=== PATIENT | female | born 1985 | race Caucasian/White ===

== ENCOUNTER 2017-06-02 10:58 | Emergency (ER) | payer OTHER ==
[~2017-06-02] VITALS: Ht 167.6 cm; Wt 95.3 kg
--- NOTE | 2017-06-02 11:31 | PHYS DOC ---
Past History Past Medical History: Asthma Past Surgical History: Tubal ligation Smoking: Cigarettes Alcohol Use: Occasionally Drug Use: None Adult General Chief Complaint Chief Complaint: BACK INJURY HPI HPI 31-year-old female patient complaining of bilateral low back pain after she slipped on ice 8 days ago. Patient states the pain is sharp and constant and getting worse with movement. Patient states left-sided pain improved but the right-sided pain is not getting better and rated her pain 7/10. Patient states she made an appointment [facility] but because of problem with insurance decided to come to ER. Patient denies , focal neuro deficit, fever and chills, urinary and bowel incontinence, history of back pain. Review of Systems Review of Systems Constitutional: Denies fever or chills [] Eyes: Denies change in visual acuity, redness, or eye pain [] HENT: Denies nasal congestion or sore throat [] Respiratory: Denies cough or shortness of breath [] Cardiovascular: No additional information not addressed in HPI [] GI: Denies abdominal pain, nausea, vomiting, bloody stools or diarrhea [] : Denies dysuria or hematuria [] Musculoskeletal: Reports back pain Integument: Denies rash or skin lesions [] Neurologic: Denies headache, focal weakness or sensory changes [] Endocrine: Denies polyuria or polydipsia [] All other systems were reviewed and found to be within normal limits, except as documented in this note. Allergies Allergies Allergies Coded Allergies Type Severity Reaction Last Updated Verified No Known Drug Allergies 06/02/17 No Physical Exam Physical Exam Constitutional: Well developed, well nourished, moderate distress, non-toxic appearance. [] HENT: Normocephalic, atraumatic, bilateral external ears normal, oropharynx moist, no oral exudates, nose normal. [] Eyes: PERRLA, EOMI, conjunctiva normal, no discharge. [] Neck: Normal range of motion, no tenderness, supple, no stridor. [] Cardiovascular:Heart rate regular rhythm, no murmur [] Lungs & Thorax: Bilateral breath sounds clear to auscultation [] Abdomen: Bowel sounds normal, soft, no tenderness, no masses, no pulsatile masses. [] Skin: Warm, dry, no erythema, no rash. [] Back: No deformity or midline tenderness, limited range of motion because of the pain, right paraspinal Extremities: No tenderness, no cyanosis, no clubbing, ROM intact, no edema. [] Neurologic: Alert and oriented X 3, normal motor function, normal sensory function, no focal deficits noted. [] Psychologic: Anxious, judgement normal, mood normal. [] Current Patient Data Vital Signs Vital Signs Date Time Temp Pulse Resp B/P (MAP) Pulse Ox O2 Delivery O2 Flow Rate FiO2 06/02/17 10:58 98.3 88 18 97 Room Air EKG EKG [] Radiology/Procedures Radiology/Procedures [] [place] [id number] IMAGING REPORT Signed PATIENT: EASTON WHITEHEAD ACCOUNT: [id number] : 1985 LOCATION: ER AGE: 31 SEX: F EXAM STATUS: REG ER ORD. PHYSICIAN: LEE CHAU MD REASON: fall, back pain PROCEDURE: LUMBAR SPINE 2-3V Lumbar spine, 3 views, 06/02/2017: History: Low back pain, injury The lumbar vertebral heights are well-maintained. The intervertebral disc spaces are well preserved. There are several shallow Schmorl's nodes. No fracture or dislocation is identified. The paraspinous soft tissues are unremarkable. IMPRESSION: No acute lumbar spine abnormality is detected. DICTATED AND SIGNED BY: ANDREI NOVAK MD DATE: 06/02/17 1142 CC: LEE CHAU MD; PCP,NO ~ Course & Med Decision Making Course & Med Decision Making Pertinent Labs and Imaging studies reviewed. (See chart for details) Evaluation of patient in ER showed 31-year-old female patient with him injury to her back for one week. Patient had no midline tenderness with unremarkable except for her back. UA showed UTI. Patient treated with [place] on flexing ER and felt better. Patient instructed to apply ice and heat on her back. discharge: I've spoken with the patient and/or caregivers. I've explained the patient's condition, diagnosis and treatment plan based on information available to me at this time. I've answered the patient's and/or caregivers questions and addressed any concerns. The patient and/or caregivers have a good understanding the patient's diagnosis, condition and treatment plan as can be expected at this point. Vital signs have been stabilized. The patient's condition is stable for discharge from the emergency department. The patient will pursue further outpatient evaluation with her primary care provider or other designated consulting physician as outlined in the discharge instructions. Patient and/or caregivers are agreeable to this plan of care and follow-up instructions have been explained in detail. The patient and/or caregivers have received these instructions in written format and expressed understanding of these discharge instructions. The patient and her caregivers are aware that if any significant change in condition or worsening of symptoms should prompt him to immediately return to this of the closest emergency department. If an emergent department is not readily available I would encourage him to call 911. [] Dragon Disclaimer Dragon Disclaimer This electronic medical record was generated, in whole or in part, using a voice recognition dictation system. Departure Departure: Impression: Primary Impression: Lumbosacral strain Additional Impressions: Urinary tract infection Back injury Disposition: HOME, SELF-CARE (At 1235) Condition: IMPROVED Referrals: PCP,LISA (PCP) Patient Instructions: Lumbosacral Strain, Urinary Tract Infection Additional Instructions: Apply ice on the affected area Follow-up with your primary care physician in 3-5 days Return to ER if not getting better Scripts Hydrocodone Bit/Acetaminophen (NORCO 5-325 TABLET) 1 Each Tablet 1 TAB PO PRN Q6HRS Y for PAIN, #14 TAB 0 Refills Prov: LEE CHAU MD 06/02/17 Cyclobenzaprine Hcl (CYCLOBENZAPRINE HCL) 10 Mg Tablet 1 TAB PO TID, #21 TAB Prov: LEE CHAU MD 06/02/17 Ciprofloxacin Hcl (CIPRO) 250 Mg Tablet 1 TAB PO BID, #14 TAB Prov: LEE CHAU MD 06/02/17 Problem Qualifiers LEE CHAU MD Jun 02, 2017 11:31
--- NOTE | 2017-06-02 11:46 | RAD ---
Lumbar spine, 3 views, 06/02/2017: History: Low back pain, injury The lumbar vertebral heights are well-maintained. The intervertebral disc spaces are well preserved. There are several shallow Schmorl's nodes. No fracture or dislocation is identified. The paraspinous soft tissues are unremarkable. IMPRESSION: No acute lumbar spine abnormality is detected.
[2017-06-02] MEDS: HYDROcodone/APAP 5/325MG 1 TAB TABLET PO ONE (11:50)
[2017-06-02] MEDS: CYCLOBENZAPRINE 10 MG TABLET. PO ONE (11:50)
[2017-06-02 12:19] LABS: BACTERIA,URINE FEW /HPF (0-FEW); BILIRUBIN,URINE NEG (NEG); CLARITY,URINE HAZY; COLOR,URINE YELLOW; GLUCOSE,URINE NEG (NEG); NITRITE,URINE NEG (NEG); SQUAMOUS EPITHELIAL CELL,UR FEW /LPF; TRICHOMONAS,URINE PRESENT; UROBILINOGEN,URINE 0.2 mg/dL (0.2 mg/dL); WBC,URINE 20-40 /HPF (0-4)
[2017-06-02 12:30] VITALS: BP 118/71
[2017-06-02] MEDS ORDERED: CYCL-331 PO (12:40)
[2017-06-02] MEDS ORDERED: CIPR250T30 PO (12:40)
[2017-06-02] MEDS ORDERED: HYDR-971 PO (12:40)
== END 2017-06-02 12:45 | disposition home or self-care (01) ==
LOC: ER 10:58
DX: S39.012A Strain of muscle, fascia and tendon of lower back, initial encounter (principal); N39.0 Urinary tract infection, site not specified; J45.909 Unspecified asthma, uncomplicated; F17.210 Nicotine dependence, cigarettes, uncomplicated; W00.0XXA Fall on same level due to ice and snow, initial encounter; Y93.89 Activity, other specified; Y99.8 Other external cause status; Y92.89 Other specified places as the place of occurrence of the external cause
CPT/HCPCS: 72100; 81001; 87086; 99285-25

== ENCOUNTER 2017-11-01 11:46 | Emergency (ER) | payer OTHER ==
[~2017-11-01] VITALS: Ht 167.6 cm; Wt 90.7 kg
[~2017-11-01 11:46] MED LIST: CIPR250T30 PO; CYCL-331 PO; HYDR-971 PO
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
[2017-11-01] MEDS ORDERED: ACET325T9 PO (12:27)
[2017-11-01] MEDS ORDERED: IBUP800T19 PO (12:27)
[2017-11-01 12:30] VITALS: BP 120/71
== END 2017-11-01 12:45 | disposition home or self-care (01) ==
LOC: ER 11:46
DX: G56.01 Carpal tunnel syndrome, right upper limb (principal); F17.200 Nicotine dependence, unspecified, uncomplicated
CPT/HCPCS: 29125; 99283

== ENCOUNTER 2017-12-29 13:38 | Emergency (ER) | payer OTHER ==
[~2017-12-29] VITALS: Ht 167.6 cm; Wt 90.7 kg
[~2017-12-29 13:38] MED LIST changes: +ACET325T9 PO; +IBUP800T19 PO
[2017-12-29 13:52] VITALS: BP 130/79
--- NOTE | 2017-12-29 15:23 | ED.ADGEN ---
Past History Past Medical History: Asthma, Depression Past Surgical History: Tubal ligation Smoking: Cigarettes Alcohol Use: Occasionally Drug Use: None Adult General Chief Complaint Chief Complaint Sore throat, nasal congestion, rhinorrhea HPI HPI Patient is a 32-year-old female presents with sore throat, congestion, rhinorrhea next 2 days. No fever chills, nausea vomiting or sweats. No dysphonia dysphagia drooling or painful swallowing[] Review of Systems Review of Systems ROS as per HPI All other systems were reviewed and found to be within normal limits, except as documented in this note. Allergies Allergies Allergies Coded Allergies Type Severity Reaction Last Updated Verified Penicillins Allergy Intermediate 12/29/17 Yes Physical Exam Physical Exam Constitutional: Well developed, well nourished, no acute distress, non-toxic appearance. [] HENT: Normocephalic, atraumatic, bilateral external ears normal, oropharynx moist, nose normal. [] Eyes: PERRLA, EOMI, conjunctiva normal, no discharge. [] Neck: Normal range of motion. [] Cardiovascular:Heart rate regular rhythm, no murmur [] Lungs & Thorax: Bilateral breath sounds clear to auscultation [] Abdomen: Bowel sounds normal, soft, no tenderness.[] Skin: Warm, dry, no erythema, no rash. [] Back: No tenderness, no CVA tenderness. [] Extremities: No tenderness. [] Neurologic: Alert and oriented X 3, normal motor function, normal sensory function, no focal deficits noted. [] Psychologic: Affect normal, judgement normal, mood normal. [] Current Patient Data Vital Signs Vital Signs Date Time Temp Pulse Resp B/P (MAP) Pulse Ox O2 Delivery O2 Flow Rate FiO2 12/29/17 13:52 98.2 85 18 100 Room Air EKG EKG [] Radiology/Procedures Radiology/Procedures [] Course & Med Decision Making Course & Med Decision Making Pertinent Labs and Imaging studies reviewed. (See chart for details) [] Final Impression Final Impression [1. Sore throat] Dragon Disclaimer Dragon Disclaimer This electronic medical record was generated, in whole or in part, using a voice recognition dictation system. VÍCTOR KING DO Dec 29, 2017 15:23
== END 2017-12-29 14:03 | disposition home or self-care (01) ==
LOC: ER 13:38
DX: J02.9 Acute pharyngitis, unspecified (principal); J45.909 Unspecified asthma, uncomplicated; F17.210 Nicotine dependence, cigarettes, uncomplicated; Z88.0 Allergy status to penicillin
CPT/HCPCS: 99281

== ENCOUNTER 2018-03-02 11:54 | Emergency (ER) | payer OTHER ==
[~2018-03-02] VITALS: Ht 167.6 cm; Wt 90.7 kg
[~2018-03-02 11:54] MED LIST changes: +HYDR-3165 PO; -HYDR-971 PO
[2018-03-02 12:16] VITALS: BP 126/70
[2018-03-02] MEDS ORDERED: IV NORMAL SALINE 1,000ML 1,000 ML IV ONE (12:30)
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
[2018-03-02] MEDS ORDERED: HYDR-3165 PO (13:17)
[2018-03-02 13:27] LABS: BACTERIA,URINE 0 /HPF (0-FEW); BILIRUBIN,URINE NEG (NEG); CLARITY,URINE HAZY; COLOR,URINE YELLOW; GLUCOSE,URINE NEG (NEG); NITRITE,URINE NEG (NEG); SQUAMOUS EPITHELIAL CELL,UR FEW /LPF; UROBILINOGEN,URINE 0.2 mg/dL (0.2 mg/dL)
[2018-03-02] MEDS ORDERED: NAPROXEN 500 MG TABLET PO ONE (13:30)
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
== END 2018-03-02 13:27 | disposition home or self-care (01) ==
LOC: ER 11:54
DX: R51 Headache (principal); M54.2 Cervicalgia; M54.5 Low back pain; M79.602 Pain in left arm; G89.11 Acute pain due to trauma; F17.210 Nicotine dependence, cigarettes, uncomplicated; Z88.0 Allergy status to penicillin; V43.52XA Car driver injured in collision with other type car in traffic accident, initial encounter; Y93.I9 Activity, other involving external motion; Y92.488 Other paved roadways as the place of occurrence of the external cause; Y99.8 Other external cause status
CPT/HCPCS: 70450; 72100; 72125; 73060; 81001; 87086; 99284

== ENCOUNTER → 2018-03-13 | Outpatient (CLI) | payer OTHER ==
[2018-03-02 12:16] VITALS: BP 126/70
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
== END | disposition home or self-care (01) ==
LOC: US 16:51
PROVIDERS: ATTEND Registered Nurse
DX: S60.222A Contusion of left hand, initial encounter (principal); X58.XXXA Exposure to other specified factors, initial encounter; Y93.89 Activity, other specified; Y92.89 Other specified places as the place of occurrence of the external cause; Y99.8 Other external cause status
CPT/HCPCS: 76881

== ENCOUNTER 2018-06-23 15:18 | Emergency (ER) | payer OTHER ==
[~2018-06-23] VITALS: Ht 167.6 cm; Wt 96.9 kg
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
[2018-06-23] MEDS ORDERED: KETOROLAC 30 MG/ML VIAL. IV ONE (16:15)
[2018-06-23 16:17] LABS: ALBUMIN 3.8 g/dL (3.4-5.0); ALBUMIN/GLOBULIN RATIO 1.1 (1.0-1.7); CALCIUM 8.9 mg/dL (8.5-10.1); CREATININE 2.1 mg/dL (0.6-1.0); GFR 27.3; POTASSIUM 3.3 mmol/L (3.5-5.1); TOTAL BILIRUBIN 0.3 mg/dL (0.2-1.0); TOTAL PROTEIN 7.4 g/dL (6.4-8.2)
--- NOTE | 2018-06-23 16:17 | RAD ---
CT of the abdomen and pelvis without contrast. 06/23/2018 3:44 PM Indication: Left flank pain, pelvic pain Comparison Study: None. Technique: Multidetector CT imaging of the abdomen pelvis is obtained without administration of contrast. Findings: The visualized bilateral lung bases are clear. The liver, spleen, bilateral adrenal glands, gallbladder, and pancreas have a normal noncontrast enhanced appearance. The bilateral kidneys are grossly normal in appearance. There is no evidence of nephrolithiasis or obstructive uropathy. The ureters are normal in course and caliber. The bladder is grossly unremarkable. There is no significant free fluid or free air in the abdomen or pelvis. There is no evidence of bowel obstruction or significant inflammatory change. The appendix is well visualized and grossly normal. There is no acute osseous abnormality identified. Impression: 1. No evidence of acute intra-abdominal abnormality 2. No evidence of nephrolithiasis or acute obstructive uropathy. CT DOSING PQRS STATEMENT: One or more of the following individualized dose reduction techniques were utilized for this examination: 1. Automated exposure control 2. Adjustment of the mA and/or kV according to patient size 3. Use of iterative reconstruction technique Electronically signed by: Samuel Dial MD (06/23/2018 4:15 PM) [facility]
[2018-06-23 16:32] LABS: BASO # 0.1 x10^3/uL (0.0-0.2); BASO % 0 % (0-3); EOS # 0.1 x10^3/uL (0.0-0.7); EOS % 1 % (0-3); HEMATOCRIT 41.9 % (36.0-47.0); HEMOGLOBIN 13.8 g/dL (12.0-15.5); LYMPH # 2.1 x10^3/uL (1.0-4.8); LYMPH % 15 % (24-48); MEAN CORPUSCULAR HEMOGLOBIN 28 pg (25-35); MEAN CORPUSCULAR HGB CONC 33 g/dL (31-37); MEAN CORPUSCULAR VOLUME 86 fL (79-100); MONO # 0.7 x10^3/uL (0.0-1.1); MONO % 5 % (0-9); NEUT # 10.9 x10^3uL (1.8-7.7); NEUT % 78 % (31-73); PLATELET COUNT 353 x10^3/uL (140-400); RED BLOOD COUNT 4.88 x10^6/uL (3.50-5.40); RED CELL DISTRIBUTION WIDTH 13.9 % (11.5-14.5); WHITE BLOOD COUNT 13.9 x10^3/uL (4.0-11.0)
[2018-06-23 18:14] VITALS: BP 119/69
[2018-06-23 19:27] LABS: SEDIMENTATION RATE 43 (0-25)
[2018-06-24 13:11] LABS: CHLAMYDIA PROBE Negative (Negative)
== END 2018-06-23 18:25 | disposition short-term general hospital (02) ==
LOC: ER 15:18
DX: M54.5 Low back pain (principal); N28.9 Disorder of kidney and ureter, unspecified; D72.829 Elevated white blood cell count, unspecified; F41.9 Anxiety disorder, unspecified; F32.9 Major depressive disorder, single episode, unspecified; F17.210 Nicotine dependence, cigarettes, uncomplicated; Z87.440 Personal history of urinary (tract) infections; Z98.51 Tubal ligation status; Z88.0 Allergy status to penicillin
CPT/HCPCS: 36415; 74176; 80053; 81025; 83690; 85025; 85651; 86140; 87491; 87591; 96374; 96375; 99285; J1885; J3010; Q0111

== ENCOUNTER 2019-06-28 09:56 | Emergency (ER) | payer MEDICAID, OTHER ==
[~2019-06-28] VITALS: Ht 167.6 cm; Wt 93.2 kg
[2019-06-28] MEDS ORDERED: IPRATRPIUM/ALBUTEROL 0.5/2.5MG 3 ML NEBU. NEB ONE (10:15)
[2019-06-28 10:40] VITALS: BP 119/55
[2019-06-28] MEDS ORDERED: AZIT250T PO (10:50)
--- NOTE | 2019-06-28 10:50 | PHYS DOC ---
Past History Past Medical History: Anxiety, Depression, UTI Past Surgical History: Tubal ligation Smoking: Cigarettes Alcohol Use: Rarely Drug Use: Marijuana Adult General Chief Complaint Chief Complaint: SHORTNESS OF BREATH HPI HPI Patient is a 33-year-old female who presents with complaint of cough, wheezing and shortness of breath for the past few days. Patient states that she has been using her inhaler without improvement. She states the cough is been productive of green sputum. She denies any fever. She also denies any chest pain. [] Review of Systems Review of Systems Constitutional: Denies fever or chills [] Respiratory: Complains of cough and shortness of breath [] Cardiovascular: No additional information not addressed in HPI [] Integument: Denies rash or skin lesions [] Neurologic: Denies headache, focal weakness or sensory changes [] Current Medications Current Medications Current Medications Medications (Trade) Dose Ordered Sig/Irina Start Time Stop Time Status Last Admin Dose Admin Albuterol/ Ipratropium (Duoneb) 3 ml 1X ONCE 06/28/19 10:15 06/28/19 10:20 DC Allergies Allergies Allergies Coded Allergies Type Severity Reaction Last Updated Verified Penicillins Allergy Intermediate 12/29/17 Yes Physical Exam Physical Exam Constitutional: Well developed, well nourished, no acute distress, non-toxic appearance. [] Cardiovascular:Heart rate regular rhythm, no murmur [] Lungs & Thorax: Fine rhonchi are noted bilaterally r to auscultation [] Extremities: No tenderness, no cyanosis, no clubbing, ROM intact, no edema. [] EKG EKG [] Radiology/Procedures Radiology/Procedures [] Course & Med Decision Making Course & Med Decision Making Pertinent Labs and Imaging studies reviewed. (See chart for details) [] Dragon Disclaimer Dragon Disclaimer This electronic medical record was generated, in whole or in part, using a voice recognition dictation system. Departure Departure: Impression: Primary Impression: Acute bronchitis Disposition: 01 HOME, SELF-CARE Condition: STABLE Referrals: PCP,NO (PCP) Patient Instructions: Acute Bronchitis Scripts Azithromycin (ZITHROMAX) 250 Mg Tablet 1 PKG PO UD for infection, #6 TAB Prov: ALEX MCMAHON Jr. DO 06/28/19 Problem Qualifiers Primary Impression: Acute bronchitis Bronchitis organism: unspecified organism Qualified Codes: J20.9 - Acute bronchitis, unspecified ALEX MCMAHON Jr. DO Jun 28, 2019 10:50
[2019-06-28] MEDS ORDERED: ALBU2.5V14 NEB (11:24)
== END 2019-06-28 11:29 | disposition home or self-care (01) ==
LOC: ER 09:56
DX: J02.9 Acute pharyngitis, unspecified (principal); F17.210 Nicotine dependence, cigarettes, uncomplicated; Z87.440 Personal history of urinary (tract) infections; Z88.0 Allergy status to penicillin
CPT/HCPCS: 94640; 99283-25

== ENCOUNTER 2020-06-11 16:02 | Emergency (ER) | payer MEDICAID ==
[~2020-06-11] VITALS: Ht 167.6 cm; Wt 94.5 kg
[~2020-06-11 16:02] MED LIST changes: +ALBU2.5V14 NEB; +AZIT250T PO
--- NOTE | 2020-06-11 16:36 | PHYS DOC ---
Past History Past Medical History: Asthma (NOEL MCGOWAN APRN) Past Surgical History: Tubal ligation (NOEL MCGOWAN APRN) Smoking: Cigarettes Alcohol Use: Rarely Drug Use: Marijuana (NOEL MCGOWAN APRN) Adult General Chief Complaint Chief Complaint: DENTAL PROBLEM HPI HPI Patient is a 34-year-old female presents emergency department complaining of tooth pain that started approximately 4 months ago after she broken her tooth. Patient states that she has a dental appointment tomorrow but can no longer take the pain. Patient denies any loss of taste or loss of smell, denies airway difficulty, denies cough or congestion, denies chest pain or chest congestion. Patient denies any numbness to her face or numbness to her mouth or tongue. Patient denies any difficulty swallowing. Patient denies any ear pain. Patient denies headache or neck pain. Patient denies any skin rashes. Patient denies any other physical complaints or physical concerns. (NOEL MCGOWAN APRN) Review of Systems Review of Systems 14 body systems of review of systems have been reviewed. See HPI for pertinent positives and negative responses, otherwise all other systems are negative, nonpertinent or noncontributory. (NOEL MCGOWAN APRN) Allergies Allergies Allergies Coded Allergies Type Severity Reaction Last Updated Verified Penicillins Allergy Intermediate 12/29/17 Yes (NOEL MCGOWAN APRN) Physical Exam Physical Exam Constitutional: Well developed, well nourished, no acute distress, non-toxic appearance. Patient tearful during physical exam. HENT: Normocephalic, atraumatic, bilateral external ears normal, oropharynx moist, no oral exudates, nose normal. Marked dental caries, multiple broken teeth in various stages of decay, no purulence or abscesses of the teeth or gums appreciated. Oropharynx moist, pink, nonerythematous, no tonsillar swelling or uvular swelling, no deep tissue infectious process appreciated. There is no lymphadenopathy of the head and neck. Eyes: PERRLA, EOMI, conjunctiva normal, no discharge. Neck: Normal range of motion, no tenderness, supple, no stridor. No nuchal rigidity, no meningismus signs. Cardiovascular:Heart rate regular rhythm, heart sounds S1-S2 Lungs & Thorax: Bilateral breath sounds clear to auscultation all lung esparza. Abdomen: Bowel sounds normal, soft, no tenderness, no masses, no pulsatile masses. Skin: Warm, dry, no erythema, no rash. Back: No tenderness to palpation of the back or midline spinous processes. Extremities: No tenderness, no cyanosis, no clubbing, ROM intact, no edema. Neurologic: Alert and oriented X 3, normal motor function, normal sensory function, no focal deficits noted. Psychologic: Affect normal, judgement normal, mood normal. (NOEL MCGOWAN APRN) EKG EKG [] (NOEL MCGOWAN APRN) Radiology/Procedures Radiology/Procedures [] (NOEL MCGOWAN APRN) Heart Score C/O Chest Pain: No Risk Factors: Risk Factors: DM, Current or recent (<one month) smoker, HTN, HLP, family history of CAD, obesity. Risk Scores: Risk Factors: DM, Current or recent (<one month) smoker, HTN, HLP, family history of CAD, obesity. (NOEL MCGOWAN APRN) Course & Med Decision Making Course & Med Decision Making Pertinent Labs and Imaging studies reviewed. (See chart for details) 34-year-old female, vital signs reviewed, presents emergency department complaint of dental pain. Physical examination noted dental caries with broken teeth. Offered patient dental block, patient is amendable to this for pain relief, patient states she has a dental appointment tomorrow. Procedure note: Left-sided inferior alveolar dental block with 2 cc 0.5% Marcaine, patient tolerated well. Upon reexamination of the patient, patient states she is now pain-free. We will give patient 450 mg of clindamycin in the ED prior to discharge, discussed with patient to tell dentist tomorrow morning at appointment she was given clindamycin and will need a prescription for further regimen if dentist feels is necessary., patient gave verbal understanding of discharge home instructions, antibiotic use, follow-up with dentist tomorrow, return to ER precautions and concerns, patient was discharged home without incident. (NOEL MCGOWAN APRN) Course & Med Decision Making Did not see or evaluate patient. Agree with DISTRIBUTION COORDINATOR's work-up and disposition per note. (AUGUSTO BRIDGES MD) Dragon Disclaimer Dragon Disclaimer This electronic medical record was generated, in whole or in part, using a voice recognition dictation system. (NOEL MCGOWAN APRN) Departure Departure: Impression: Primary Impression: Dentalgia Additional Impression: Dental caries Disposition: 01 DC HOME SELF CARE/HOMELESS Condition: IMPROVED Referrals: [facility]PL[facility] (PCP) Patient Instructions: Dental Caries Additional Instructions: Please take antibiotic as prescribed, keep your appointment tomorrow with your dentist, return to the emergency department for worsening symptoms or other concerns. Scripts Ibuprofen (IBUPROFEN) 600 Mg Tablet 600 MG PO TID PRN PRN for PAIN, #20 TAB 0 Refills Prov: NOEL MCGOWAN APRN 06/11/20 Chlorhexidine Gluconate (PERIDEX) 15 Ml Mouthwash 15-30 ML PO TID for DENTAL CARIES for 8 Days, #473 ML 0 Refills SWISH AND SPIT THREE TIMES A DAY Prov: NOEL MCGOWAN APRN 06/11/20 Problem Qualifiers NOEL MCGOWAN APRN Jun 11, 2020 16:36 AUGUSTO BRIDGES MD Jun 14, 2020 18:12
[2020-06-11] MEDS ORDERED: BUPIVACAINE MPF 0.5% 30 ML VIAL. IJ ONE (16:45)
[2020-06-11] MEDS ORDERED: CLINDAMYCIN HCL 150 MG CAPSULE PO ONE (17:00)
[2020-06-11] MEDS ORDERED: IBUP600T16 PO (18:03)
[2020-06-11] MEDS ORDERED: CHLO15MO2 PO (18:03)
== END 2020-06-11 18:13 | disposition home or self-care (01) ==
LOC: ER 16:02
DX: S02.5XXA Fracture of tooth (traumatic), initial encounter for closed fracture (principal); K02.9 Dental caries, unspecified; J45.909 Unspecified asthma, uncomplicated; F17.210 Nicotine dependence, cigarettes, uncomplicated; Z88.0 Allergy status to penicillin; X58.XXXA Exposure to other specified factors, initial encounter; Y93.89 Activity, other specified; Y92.89 Other specified places as the place of occurrence of the external cause; Y99.8 Other external cause status
CPT/HCPCS: 64400; 99284; J3490; 99283

== ENCOUNTER 2020-06-24 17:11 | Emergency (ER) | payer MEDICAID ==
[~2020-06-24] VITALS: Ht 167.6 cm; Wt 94.5 kg
[~2020-06-24 17:11] MED LIST changes: +CHLO15MO2 PO; +IBUP600T16 PO
[2020-06-24 17:37] VITALS: BP 111/70
--- NOTE | 2020-06-24 17:43 | RAD ---
XR FINGER(S)_RIGHT 2+VIEWS History: Reason: Injury, RING FINGER PIP JOINT PAIN / Spl. Instructions: / History: Technique: 3 views right fourth digit. Comparison: None. Findings: Normal alignment. No fracture. Soft tissues unremarkable. Impression: 1. No acute osseous abnormality. Electronically signed by: Mundo Judd DO (06/24/2020 5:41 PM) [facility]
--- NOTE | 2020-06-24 18:09 | PHYS DOC ---
Past History Past Medical History: No Pertinent History (NOEL MCGOWAN APRN) Past Surgical History: Tubal ligation (NOEL MCGOWAN APRN) Smoking: Cigarettes Alcohol Use: Occasionally Drug Use: Marijuana (NOEL MCGOWAN APRN) Adult General Chief Complaint Chief Complaint: FINGER INJURY HPI HPI Patient is a 34-year-old female presents emergency department complaining of pain to her right ring finger. Patient states approximately 8 hours ago she was carrying something heavy, has 7/10 pain on a 1-10 pain scale. Patient states she thinks it might be dislocated. Patient denies any blunt trauma to her finger. Patient denies any other physical complaints or physical concerns. Patient denies any numbness or sensation problems to her hand or right ring finger. Patient states she has taken ibuprofen at home for the pain. Patient states she just wants somebody to pull on it to relocate it into his proper spot. Patient reports her last menstrual cycle started 2 days ago and is currently on now. (NOEL MCGOWAN APRN) Review of Systems Review of Systems 14 body systems of review of systems have been reviewed. See HPI for pertinent positives and negative responses, otherwise all other systems are negative, nonpertinent or noncontributory. (NOEL MCGOWAN APRN) Allergies Allergies Allergies Coded Allergies Type Severity Reaction Last Updated Verified Penicillins Allergy Intermediate 12/29/17 Yes (NOEL MCGOWAN APRN) Physical Exam Physical Exam Constitutional: Well developed, well nourished, no acute distress, non-toxic appearance. 34-year-old female in no apparent distress. HENT: Normocephalic, atraumatic, bilateral external ears normal, no oral exudates, nose normal for visual appearance. Eyes: Conjunctiva normal, no drainage appreciated, patient tracking normally. Neck: Patient moving neck normally. Cardiovascular: No cyanosis appreciated, distal cap refill less than 2 seconds. Lungs & Thorax: Patient in no obvious respiratory distress, no audible adventi tious lung sounds appreciated. Skin: Warm, dry, no erythema, no rash appreciated of visible skin seen. Extremities: No tenderness, no cyanosis, no clubbing, ROM intact, no edema. Except for patient's right ring finger. Pain elicited at right ring finger PIP joint, no swelling appreciated, no crepitus appreciated, distal cap refill less than 2 seconds, pain elicited with passive range of motion flexion and extension of right ring finger. Patient does not have any metallic rings on finger. Neurologic: Alert and oriented X 3, normal motor function, normal sensory function, no focal deficits noted. Psychologic: Affect normal, judgement normal, mood normal. (NOEL MCGOWAN APRN) Current Patient Data Vital Signs Vital Signs Date Time Temp Pulse Resp B/P (MAP) Pulse Ox O2 Delivery O2 Flow Rate FiO2 06/24/20 17:37 86 18 111/70 (84) 100 (NOEL MCGOWAN APRN) EKG EKG [] (NOEL MCGOWAN APRN) Radiology/Procedures Radiology/Procedures PATIENT: EASTON WHITEHEAD NACCOUNT: [id number] : 1985 LOCATION: ER AGE: 34 SEX: F EXAM STATUS: REG ER ORD. PHYSICIAN: NOEL MCGOWAN APRN REASON: Injury, RING FINGER PIP JOINT PAIN PROCEDURE: FINGER(S) RIGHT XR FINGER(S)_RIGHT 2+VIEWS History: Reason: Injury, RING FINGER PIP JOINT PAIN / Spl. Instructions: / History: Technique: 3 views right fourth digit. Comparison: None. Findings: Normal alignment. No fracture. Soft tissues unremarkable. Impression: 1. No acute osseous abnormality. Electronically signed by: Mundo Judd DO (06/24/2020 5:41 PM) [facility] DICTATED AND SIGNED BY: MUNDO JUDD DO DATE: 06/24/20 1739 CC: NOEL MCGOWAN APRN; PCP,NO ~MTH0 0 (NOEL MCGWOAN APRN) Heart Score C/O Chest Pain: No Risk Factors: Risk Factors: DM, Current or recent (<one month) smoker, HTN, HLP, family history of CAD, obesity. Risk Scores: Risk Factors: DM, Current or recent (<one month) smoker, HTN, HLP, family history of CAD, obesity. (NOEL MCGOWAN APRN) Course & Med Decision Making Course & Med Decision Making Pertinent Labs and Imaging studies reviewed. (See chart for details) 34-year-old female, vital signs reviewed, presents emergency department concerning of right ring finger pain. Physical examination was unremarkable. X-ray of the right hand attention ring finger ordered. X-ray unremarkable per house radiologist interpretation. Discussed findings with patient, will place an aluminum finger splint for comfort for the next several days, patient can use [id number] Tylenol or Motrin for pain. Offered pain medication here in the ED. Patient refused need. Discussed with patient need to follow-up with primary care physician for reexamination of finger pain and ongoing pain management. Return to ER precautions and concerns for Patient gave verbal understanding of discharge home instructions, follow-up with PCP, splint use, return to ER precautions or concerns, discharged home without incident. (NOEL MCGOWAN APRN) Course & Med Decision Making I oversaw on the above date of service of this patient and discussed the care with the PRINTING PRESSMAN. I agree with the findings, plan of care, and disposition as documented. Electronically signed, Mikel Barillas DO (MIKEL ABRILLAS DO) Mely Disclaimer Dragnilson Disclaimer This electronic medical record was generated, in whole or in part, using a voice recognition dictation system. (NOEL MCGOWAN APRN) Departure Departure: Impression: Primary Impression: Finger pain, right Disposition: 01 DC HOME SELF CARE/HOMELESS Condition: GOOD Referrals: PCP,NO (PCP) MARK MCCRAY Patient Instructions: Splint Care-Brief Additional Instructions: Please use splint as we discussed, see your primary doctor soon for ongoing aches and pains and reevaluation of your finger pain. I have given you a referral doctor to follow-up with in the event that you cannot see your own primary care doctor. Please return to the emergency department for worsening symptoms or other concerns. EMERGENCY DEPARTMENT GENERAL DISCHARGE INSTRUCTIONS Thank you for coming to [facility] (ED) today and trusting us with you care. We trust that you had a positivie experience in our Emergency Department. If you wish to speak to the department management, you may call the director at [phone]. YOUR FOLLOW UP INSTRUCTIONS ARE FOLLOWS: 1. Do you have a private Doctor? If you do not have a private doctor, please ask for a resource list of physicians or clinics that may be able to assist you with follow up care. 2. The Emergency Physician has interpreted your x-rays. The X-Ray specialist will also review them. If there is a change in the findings, you will be notified in 48 hours when at all possible. 3. A lab test or culture has been done, your results will be reviewed and you will be notified if you need a change in treatment. ADDITIONAL INSTRUCTIONS AND INFORMATION: 1. Your care today has been supervised by a physician who is specially trained in emergency care. Many problems require more than one evaluation for a complete diagnosis and treatment. We recommend that you schedule your follow up appointment as recommended to ensure complete treatment of you illness or injury. If you are unable to obtain follow up care and continue to have a problem, or if your condition worsens, we recommend that you return to the ED. 2. We are not able to safely determine your condition over the phone nor are we able to give sound medical advice over the phone. For these safety reasons, if you call for medical advice we will ask you to come to the ED for further evaluation. 3. If you have any questions regarding these discharge instructions please call the ED at [phone]. SAFETY INFORMATION: In the interest of safety, wellness, and injury prevention; we encourage you to wear your sealbelt, if you smoke; quite smoking, and we encourage family to use a protective helmet for bicycling and other sporting events that present an increased risk for head injury. IF YOUR SYMPTOMS WORSEN OR NEW SYMPTOMS DEVELOP, OR YOU HAVE CONCERNS ABOUT YOUR CONDITION; OR IF YOUR CONDITION WORSENS WHILE YOU ARE WAITING FOR YOUR FOLLOW UP APPOINTMENT; EITHER CONTACT YOUR PRIMARY CARE DOCTOR, THE PHYSICIAN WHOSE NAME AND NUMBER YOU WERE GIVEN, OR RETURN TO THE ED IMMEDIATELY. NOEL MCGOWAN APRN Jun 24, 2020 18:09 MIKEL BARILLAS DO Jun 25, 2020 06:34
== END 2020-06-24 18:36 | disposition home or self-care (01) ==
LOC: ER 17:11
DX: M79.644 Pain in right finger(s) (principal); F12.90 Cannabis use, unspecified, uncomplicated; F17.210 Nicotine dependence, cigarettes, uncomplicated; Z98.51 Tubal ligation status; Z88.1 Allergy status to other antibiotic agents
CPT/HCPCS: 29130; 73140; 99283